=== PATIENT | female | born 1960 | race African-American/Black ===

== ENCOUNTER 2023-06-16 11:18 | Emergency (ER) | payer BC ==
[~2023-06-16] VITALS: Ht 170.2 cm; Wt 116.6 kg
[2023-06-16 13:12] LABS: BASOPHILS # (AUTO) 0.1 K/uL (0.0-0.2); BASOPHILS % (AUTO) 1.3 % (0.0-2.0); EOSINOPHILS # (AUTO) 0.1 K/uL (0.0-0.7); EOSINOPHILS % (AUTO) 2.1 % (0.0-6.0); HEMATOCRIT 32 % (33-45); HEMOGLOBIN 10.6 g/dL (11.5-14.8); LYMPHOCYTES # (AUTO) 2.4 K/uL (0.8-4.8); LYMPHOCYTES % (AUTO) 40.4 % (20.0-44.0); MEAN CORPUSCULAR HEMOGLOBIN 29 PG (26.0-33.0); MEAN CORPUSCULAR HGB CONC 33 g/dl (31.0-36.0); MEAN CORPUSCULAR VOLUME 86 fL (82-100); MONOCYTES # (AUTO) 0.6 K/uL (0.1-1.30); MONOCYTES % (AUTO) 10.4 % (2.0-12.0); NEUTROPHILS # (AUTO) 2.8 K/uL (1.8-8.9); NEUTROPHILS % (AUTO) 45.8 % (43.0-81.0); PLATELET COUNT (AUTO) 458 K/uL (150-450); RED CELL DISTRIBUTION WIDTH 15.4 % (11.5-15.0); WHITE BLOOD COUNT (AUTO) 6.1 K/uL (4.3-11.0)
[2023-06-16 13:24] LABS: CALCIUM, SERUM 9.2 mg/dL (8.5-10.1); CARBON DIOXIDE 26 mmol/L (21-32); CHLORIDE 108 mmol/L (98-107); CREATININE 0.9 mg/dL (0.6-1.3); GLUCOSE 95 mg/dL (74-106); POTASSIUM 3.6 mmol/L (3.5-5.1); SODIUM SERUM 142 mmol/L (136-145); UREA NITROGEN, BLOOD 14 mg/dL (7-18)
[2023-06-16 13:40] LABS: INR 0.98 (0.91-1.10); PARTIAL THROMBOPLASTIN TIME 28.2 SEC (24.3-34.3); PROTHROMBIN TIME 10.3 SECS (9.2-11.1)
[2023-06-16] MEDS ORDERED: IV NS 0.9% 250 ML IV ONE (14:03)
[2023-06-16] MEDS ORDERED: IOHEXOL-350 100 ML VIAL IV ONE (14:03)
[2023-06-16] MEDS ORDERED: LISINOPRIL (20MG) 20 MG TABLET ONE (16:29)
[2023-06-16] MEDS ORDERED: IBUPROFEN 600 MG TABLET ONE (16:29)
[2023-06-16] MEDS ORDERED: IBUPROFEN 600 MG TABLET PO ONE (16:30)
[2023-06-16] MEDS ORDERED: LISINOPRIL (20MG) 20 MG TABLET PO SCH (16:30)
[2023-06-16] MEDS ORDERED: LISI1TAB29 PO (16:33)
[2023-06-16] MEDS ORDERED: PROP40TA7 PO (16:34)
[2023-06-16] MEDS ORDERED: IBUP-1955 PO (16:34)
[2023-06-16] MEDS ORDERED: QUET400T PO (16:35)
[2023-06-16] MEDS ORDERED: PROPRANOLOL HCL 40 MG TABLET PO ONE (17:00)
[2023-06-16 17:04] VITALS: BP 143/110; TEMP 98.6; O2SAT 100
== END 2023-06-16 17:04 | disposition home or self-care (01) ==
LOC: ER 11:36
DX: R51.9 Headache, unspecified (principal); I10 Essential (primary) hypertension; F20.9 Schizophrenia, unspecified; F31.9 Bipolar disorder, unspecified; F41.9 Anxiety disorder, unspecified; Z59.00 Homelessness unspecified
CPT/HCPCS: 99285; 70498; 93005; 70496; 85025; 80048; 36415; 84484; 85730; J7050; Q9967